=== PATIENT | female | born 1960 | race Caucasian/White ===

== ENCOUNTER 2017-08-30 14:44 | Outpatient (CLI) ==
[2014-11-06 13:28] VITALS: BMI 27.4
--- NOTE | 2017-08-30 15:19 | DI ---
EXAM: Two views of the chest. History: Cough. Comparison: Chest radiograph 09/06/2014 Findings: Heart size is normal. Pacer device. Multifocal right lung consolidation. No pleural flu id and no pneumothorax. No acute osseous abnormalities. Impression: Multifocal right lung pneumonia. Follow-up recommended to assure resolution.
== END 2017-08-30 14:45 | disposition home or self-care (01) ==
LOC: RAD 14:44
PROVIDERS: ATTEND Family Medicine
DX: R05 Cough (principal)

== ENCOUNTER 2017-09-08 11:19 | Outpatient (CLI) ==
[2014-11-06 13:28] VITALS: BMI 27.4
--- NOTE | 2017-09-08 11:58 | DI ---
EXAM: Two-view chest HISTORY: Pneumonia COMPARISON: Two-view chest 08/30/2017 FINDINGS: There is a stable left-sided pacemaker.. The cardiomediastinal silhouette stable. The le ft lung remains clear. There is improving aeration within the right lower lobe with residual infiltr ate. There is no evidence of pleural effusion. IMPRESSION: Significant clearing of a previously noted right-sided infiltrate with residual opacity. Continued f ollow-up is suggested to ensure complete resolution.
== END 2017-09-08 11:20 | disposition home or self-care (01) ==
LOC: RAD 11:19
PROVIDERS: ATTEND Family Medicine
DX: J18.9 Pneumonia, unspecified organism (principal)

== ENCOUNTER 2017-10-12 14:53 | Outpatient (CLI) ==
[2014-11-06 13:28] VITALS: BMI 27.4
--- NOTE | 2017-10-12 16:30 | DI ---
EXAM: Chest two view, frontal and lateral views. HISTORY: Pneumonia follow-up. COMPARISON: 09/08/2017. FINDINGS: Left-sided pacemaker is stable in position. Heart size is normal. There is no vascular c ongestion. Right mid to lower lung consolidation appears mildly worsened since the prior study. Lef t lung is clear. No pleural effusion or pneumothorax identified. No acute osseous abnormality detec ronnie. IMPRESSION: Mild worsening of right lung pneumonia. Continued follow-up is recommended.
== END 2017-10-12 14:54 | disposition home or self-care (01) ==
LOC: RAD 14:53
PROVIDERS: ATTEND Family Medicine
DX: J18.9 Pneumonia, unspecified organism (principal)

== ENCOUNTER 2017-10-14 13:19 | Outpatient (CLI) ==
[2014-11-06 13:28] VITALS: BMI 27.4
--- NOTE | 2017-10-14 14:12 | CT ---
EXAM: CT scan of the chest without contrast HISTORY: Abnormal chest x-ray TECHNIQUE: Helical imaging of the chest was performed without contrast. 5 mm thin axial images and coronal and sagittal reconstructions were provided for interpretation. Comparison 10/12/2017 two-view chest. FINDINGS: The heart is normal size. Small pretracheal lymph nodes are identified measuring up to 9 mm along the short axis. Approximately two lesions are seen. Diffuse infiltrates are seen in the rig ht lower lobe, right middle lobe and right upper lobe of the lung. There is no pleural effusion. Th e left lung appears clear. There is a cyst seen within the left lobe of the liver. No lytic or blast ic lesions are seen within the osseous structures. IMPRESSION: Diffuse pneumonia seen throughout the right lung. Small probable reactive lymph nodes are seen within the mediastinum. Continued evaluation is recomme nded to check for resolution.
== END 2017-10-14 13:20 | disposition home or self-care (01) ==
LOC: RAD 13:19
PROVIDERS: ATTEND Family Medicine
DX: R93.8 Abnormal findings on diagnostic imaging of other specified body structures (principal)

== ENCOUNTER 2018-03-15 12:33 | Emergency (ER) | payer OTHER ==
[2018-03-15 12:33] VITALS: BMI 27.4
[2018-03-15 12:41] VITALS: BP 158/98; TEMP 96.8
[2018-03-15] MEDS ORDERED: ASPIRIN CHEWABLE PO STA (13:00)
[2018-03-15] MEDS ORDERED: NITROSTAT SL PRN (13:01)
[2018-03-15] MEDS ORDERED: MORPHINE 4 MG/ML SYRINGE IVP STA (13:24)
[2018-03-15] MEDS ORDERED: ZOFRAN 4 MG/2 ML IVP STA (13:25)
--- NOTE | 2018-03-15 13:28 | DI ---
EXAM: Chest PA and lateral HISTORY: Chest pain. COMPARRISON: 10/12/2017. FINDINGS: The heart is mildly enlarged. Multi lead left chest pacer device is present. Pulmonary vas cularity is within normal limits. Small right-sided pleural effusion is present. Right basilar patch y airspace opacities are present. IMPRESSION: Small right pleural effusion with associated atelectasis or pneumonia. Mild cardiomegaly.
--- NOTE | 2018-03-15 13:56 | ED.PDOC ---
General ED Provider: Dr. STALIN MCGILL Chief Complaint: Chest Pain Stated Complaint: chest pain Time Seen by Physician: 12:34 (seen with jimena at all times ) Mode of Arrival: Walk-In Information Source: Patient Exam Limitations: No limitations Primary Care Provider: LENO RIGGINS Referred to ED by: Other (PACEMAKER BATTERIES WERE CHANGED 2 WEEKS AGO) Nursing and Triage Documentation Reviewed and Agree: Yes Does patient meet sepsis criteria?: No System Inflammatory Response Syndrome: Not Applicable Sepsis Protocol: For patient's 13 years and over: Temp is 96.8 and below OR 101 and greater Pulse >90 BPM Resp >20/minute Acutely Altered Mental Status Are patient's symptoms suggestive of a new infection, such as: -Pneumonia -Skin, Soft Tissue -Endocarditis -UTI -Bone, Joint Infection -Implantable Device -Acute Abdominal Infection -Wound Infection -Meningitis -Blood Stream Catheter Infection -Unknown Cardiovascular Complaint Exam - Chest Pain Complaint/Exam Onset: Gradual Duration: onset 7 am today Symptoms Are: Still present Timing: Intermittent Length of Chest Pain Episodes: 1 hr Initial Severity: Moderate Current Severity: Moderate Location: Reports: Midsternal Pain Radiates: Reports: None Character: Reports: Aching, Heaviness, Pressure Aggravating: Reports: None Alleviating: Reports: Nitro Associated Signs and Symptoms: Denies: Diaphoresis, Nausea, Vomiting, Fever, Palpitations, Cough, Hemoptysis, Back pain, Abdominal pain, Dizziness, Short of air, Calf pain, Calf swelling Related History: Reports: Similar episode Related Surgical History: Reports: None History of Healthcare-Acquired Pneumonia: Reports: No Review of Systems - Review Of Systems Constitutional: Reports: No symptoms Eyes: Reports: No symptoms Ears, Nose, Mouth, Throat: Reports: No symptoms Respiratory: Reports: No symptoms Cardiac: Reports: Chest pain GI: Reports: No symptoms : Reports: No symptoms Musculoskeletal: Reports: No symptoms Skin: Reports: No symptoms Neurological: Reports: No symptoms Endocrine: Reports: No symptoms Hematologic/Lymphatic: Reports: No symptoms All Other Systems: Reviewed and Negative Past Medical History - Past Medical History Previously Healthy: Yes Endocrine: Reports: Hypothyroid, Dyslipidemia Cardiovascular: Reports: None Respiratory: Reports: None Hematological: Reports: None Gastrointestinal: Reports: GERD Genitourinary: Reports: None Neuro/Psych: Reports: Depression Musculoskeletal: Reports: None Cancer: Reports: None Last Menstrual Period: NONE - Surgical History General Surgical History: Reports: Pacemaker - Family History Family History: Reports: None - Social History Smoking Status: Current every day smoker, Heavy tobacco smoker Hx Substance Use: Yes Alcohol Screening: None Physical Exam - Physical Exam Appearance: Well-appearing, No pain distress, Well-nourished Eyes: SHANNON, EOMI, Conjunctiva clear ENT: Ears normal, Nose normal, Oropharynx normal Respiratory: Airway patent, Breath sounds clear, Breath sounds equal, Respirations nonlabored Cardiovascular: RRR, Pulses normal, No rub, No murmur GI/: Soft, Nontender, No masses, Bowel sounds normal, No Organomegaly Musculoskeletal: Normal strength, ROM intact, No edema, No calf tenderness Skin: Warm, Dry, Normal color Neurological: Sensation intact, Motor intact, Reflexes intact, Cranial nerves intact, Alert, Oriented Psychiatric: Affect appropriate, Mood appropriate Interpretation - Radiology Interpretation Radiology Interpretation By: Radiologist Radiology Results: Positive (small right sided effusion) - [employer] Rate: Normal Rhythm: Sinus Ectopy: None - EKG Interpretation Rate: Normal Rhythm: Sinus Ectopy: None [place]: NL ST Segment: Other (RBBB WITH SECONDRY CHANGES) Rate: Normal Rhythm: Sinus (SAME FINDING MARCO) Re-Evaluation - Re-Evaluation Time of Re-Evaluation: 13:00 Status: Unchanged Vital Signs Stable: Yes Pain Level: 4/10 Appearance: NAD Lungs: Clear Skin: Warm and Dry Neuro: Alert and Oriented X3 CV: RRR - Re-Evaluation Time of Re-Evaluation: 14:03 Status: Improved Vital Signs Stable: Yes Pain Level: 0 Appearance: NAD Skin: Warm and Dry Neuro: Alert and Oriented X3 CV: RRR Physician Notification - Case Discussed Physician Notified: ANDRAE WILLOUGHBY Time of Notification: 14:03 (TRANSFER NOW) Critical Care Note - Critical Care Note Total Time (mins): 0 Course - Course Hematology/Chemistry: 03/15/18 12:55 03/15/18 12:55 Orders, Labs, Meds: Lab Review 03/15/18 03/15/18 12:55 12:55 WBC 13.52 H RBC 4.49 Hgb 12.7 Hct 38.5 MCV 85.7 MCH 28.3 MCHC 33.0 RDW Coeff of Vamsi 16.1 H Plt Count 311 Immature Gran % (Auto) 0.4 Neut % (Auto) 72.7 Lymph % (Auto) 17.7 [place] % (Auto) 6.7 Eos % (Auto) 1.8 Baso % (Auto) 0.7 Immature Gran # (Auto) 0.1 Neut # (Auto) 9.8 H Lymph # (Auto) 2.4 [place] # (Auto) 0.9 Eos # (Auto) 0.2 Baso # (Auto) 0.1 Sodium 143 Potassium 3.3 L Chloride 106 Carbon Dioxide 27 Anion Gap 13.3 BUN 9 Creatinine 0.85 Estimated GFR (MDRD) 68.00 BUN/Creatinine Ratio 10.58 Glucose 86 Calcium 9.3 Total Bilirubin 0.4 AST 14 L ALT 14 Alkaline Phosphatase 86 Total Creatine Kinase 113 Troponin I < 0.0100 Total Protein 6.9 Albumin 3.6 Globulin 3.3 Albumin/Globulin Ratio 1.09 Orders Category Date Time Status EKG-(ED ONLY) Stat CARDIO 03/15/18 12:53 Completed EKG-(ED ONLY) Stat CARDIO 03/15/18 13:21 Ordered ED IV/MEDIPORT/POWERPORT .ONCE EMERGENCY 03/15/18 12:53 Active CBC W/ AUTO DIFF Stat LAB 03/15/18 12:55 Completed COMPREHENSIVE METABOLIC PANEL Stat LAB 03/15/18 12:55 Received CREATINE KINASE Stat LAB 03/15/18 12:55 Received TROPONIN I Stat LAB 03/15/18 12:55 Received 0.9 % Sodium Chloride [Saline Flush] MEDS 03/15/18 12:53 Active 1 syr IVF PRN PRN Aspirin [Aspirin Chewable] MEDS 03/15/18 13:00 Discontinued 324 mg PO ONCE STA Morphine Sulfate [Morphine 4 mg/ml Syringe] MEDS 03/15/18 13:24 Stat 4 mg IVP ONCE STA Nitroglycerin [Nitrostat] MEDS 03/15/18 13:01 Active 0.4 mg SL Q5MIN X 3 DOSES PRN Ondansetron HCl/Pf [Zofran 4 mg/2 ml] MEDS 03/15/18 13:25 Stat 4 mg IVP ONCE STA CHEST, 2 VIEWS PA & LAT Stat RADS 03/15/18 12:53 Ordered Medications Generic Name Dose Route Start Last Admin Trade Name Freq PRN Reason Stop Dose Admin Nitroglycerin 0.4 mg 03/15/18 13:01 03/15/18 13:18 Nitrostat SL 0.4 mg Q5MIN X 3 DOSES PRN Administration Chest Pain Sodium Chloride 1 syr 03/15/18 12:53 03/15/18 13:18 Saline Flush IVF 1 syr PRN PRN Administration To flush IV Discontinued Medications Generic Name Dose Route Start Last Admin Trade Name Kayla PRN Reason Stop Dose Admin Aspirin 324 mg 03/15/18 13:00 03/15/18 13:17 Aspirin Chewable PO 03/15/18 13:01 324 mg ONCE STA Administration Morphine Sulfate 4 mg 03/15/18 13:24 03/15/18 13:39 Morphine 4 Mg/Ml Syringe IVP 03/15/18 13:25 4 mg ONCE STA Administration Ondansetron HCl 4 mg 03/15/18 13:25 03/15/18 13:36 Zofran 4 Mg/2 Ml IVP 03/15/18 13:26 4 mg ONCE STA Administration Vital Signs: Temp Pulse Resp BP Pulse Ox 03/15/18 12:33 96.8 F L 93 H 20 158/98 H 96 ANDREI Risk Score ANDREI Risk Score: Risk Score Odds of by 30D 0 0.1 (0.1-0.2) 1 0.3 (0.2-0.3) 2 0.4 (0.3-0.5) 3 0.7 (0.6-0.9) 4 1.2 (1.0-1.5) 5 2.2 (1.9-2.6) 6 3.0 (2.5-3.6) 7 4.8 (3.8-6.1) Departure - Departure Time of Disposition: 14:04 Disposition: TSF SHORT-TRM HOSP Discharge Problem: Chest pain Instructions: Angina (DC) Condition: Good Pt referred to PMD for follow-up: Yes IPMP verified?: No Additional Instructions: Please call your Family Physician as soon as possible to schedule a follow-up appointment. Allergies/Adverse Reactions: Allergies lithium [Sarah Ann] Adverse Reaction (Verified 03/15/18 12:41) onabotulinumtoxinA [From Botox] Adverse Reaction (Verified 03/15/18 12:41) Home Medications: Ambulatory Orders Atorvastatin Calcium 10 mg PO BEDTIME 09/24/13 Pregabalin [Lyrica] 200 mg PO TID 09/24/13 Levothyroxine Sodium [Synthroid] 75 mcg PO QDAC 04/23/14 Amitriptyline HCl 100 mg PO DAILY 05/16/17 Budesonide/Formoterol Fumarate [Symbicort 160-4.5 Mcg Inhaler] 10.2 gm IH BID Diclofenac Sodium [Voltaren-Xr] 75 mg PO BID 05/16/17 Pantoprazole Sodium [Protonix] 40 mg PO BID 05/16/17 Duloxetine HCl [Cymbalta] 40 mg PO BID 05/18/17 Quetiapine Fumarate [Seroquel] 300 mg PO BEDTIME 05/18/17 Disposition Discussed With: Patient
== END 2018-03-15 14:44 | disposition short-term general hospital (02) ==
LOC: ED 12:33
DX: R07.9 Chest pain, unspecified (principal); E78.5 Hyperlipidemia, unspecified; E03.9 Hypothyroidism, unspecified; Z95.0 Presence of cardiac pacemaker; F17.210 Nicotine dependence, cigarettes, uncomplicated; Z79.899 Other long term (current) drug therapy
CPT/HCPCS: 36415; 80053; 82550; 84484; 85025; 93005; 93010; 96374; 96375; 99285

== ENCOUNTER 2018-04-21 17:12 | Outpatient (CLI) | END 2018-04-21 17:31 | disposition short-term general hospital (02) | LOC: AMBL 17:12 | PROVIDERS: ATTEND Internal Medicine | DX: R41.0 Disorientation, unspecified (principal); R52 Pain, unspecified ==

== ENCOUNTER 2019-04-02 23:03 | Emergency (ER) ==
[2019-04-02 23:22] VITALS: BP 87/57; TEMP 96; BMI 23.8
[2019-04-02] MEDS ORDERED: DECADRON 4 MG/ML SDV IM STA (23:39)
[2019-04-02] MEDS ORDERED: BENADRYL IM STA (23:39)
--- NOTE | 2019-04-02 23:42 | ED.PDOC ---
General ED Provider: Dr. LENO RIGGINS-ER Chief Complaint: Allergic Reaction Stated Complaint: my forehead and arms are red---i must be allergic to the new laundry detergent i used today Time Seen by Physician: 23:40 Mode of Arrival: Walk-In Information Source: Patient Exam Limitations: No limitations Primary Care Provider: LENO RIGGINS Nursing and Triage Documentation Reviewed and Agree: Yes Does patient meet sepsis criteria?: No System Inflammatory Response Syndrome: Not Applicable Sepsis Protocol: For patient's 13 years and over: Temp is 96.8 and below OR 101 and greater Pulse >90 BPM Resp >20/minute Acutely Altered Mental Status Are patient's symptoms suggestive of a new infection, such as: -Pneumonia -Skin, Soft Tissue -Endocarditis -UTI -Bone, Joint Infection -Implantable Device -Acute Abdominal Infection -Wound Infection -Meningitis -Blood Stream Catheter Infection -Unknown Skin Complaint Exam - Skin Rash/Itching Complaint/Exam Onset/Duration: one hour Symptoms Are: Still present Initial Severity: Mild Current Severity: Mild Location: forehead and arms Potential Exposures: Reports: Other Aggravating: Reports: None Alleviating: Reports: None Associated Signs and Symptoms: Denies: Difficulty breathing, Fever, Chills Differential Diagnoses: Contact Dermatitis Review of Systems - Review Of Systems Constitutional: Reports: No symptoms Eyes: Reports: No symptoms Ears, Nose, Mouth, Throat: Reports: No symptoms Respiratory: Reports: No symptoms Cardiac: Reports: No symptoms GI: Reports: No symptoms : Reports: No symptoms Musculoskeletal: Reports: No symptoms Skin: Reports: Rash Neurological: Reports: No symptoms Endocrine: Reports: No symptoms Hematologic/Lymphatic: Reports: No symptoms All Other Systems: Reviewed and Negative Past Medical History - Past Medical History Previously Healthy: Yes Endocrine: Reports: Hypothyroid, Dyslipidemia Cardiovascular: Reports: None Respiratory: Reports: None Hematological: Reports: None Gastrointestinal: Reports: GERD Genitourinary: Reports: None Neuro/Psych: Reports: Depression Musculoskeletal: Reports: None Cancer: Reports: None Last Menstrual Period: UNKNOWN - Surgical History General Surgical History: Reports: Pacemaker - Family History Family History: Reports: None - Social History Smoking Status: Current every day smoker, Heavy tobacco smoker Hx Substance Use: Yes Alcohol Screening: None - Immunizations Tetanus Shot up to Date: (UNKNOWN) Physical Exam - Physical Exam Appearance: Well-appearing, No pain distress, Well-nourished Eyes: SHANNON, EOMI, Conjunctiva clear ENT: Ears normal, Nose normal, Oropharynx normal Neck: Supple Respiratory: Airway patent, Breath sounds clear, Breath sounds equal, Respirations nonlabored Cardiovascular: RRR, Pulses normal, No rub, No murmur GI/: Soft, Nontender, No masses, Bowel sounds normal, No Organomegaly Musculoskeletal: Normal strength, ROM intact, No edema, No calf tenderness Skin: Warm, Dry, Normal color Neurological: Sensation intact, Motor intact, Reflexes intact, Cranial nerves intact, Alert, Oriented Psychiatric: Affect appropriate, Mood appropriate Critical Care Note - Critical Care Note Total Time (mins): 0 Course - Course Orders, Labs, Meds: Orders Category Date Time Status Dexamethasone 4 mg/ml Inj [Decadron 4 mg/ml Sdv] MEDS 04/02/19 23:39 Discontinued 2 mg IM ONCE STA Diphenhydramine Inj [Benadryl] MEDS 04/02/19 23:39 Discontinued 50 mg IM ONCE STA Medications Discontinued Medications Generic Name Dose Route Start Last Admin Trade Name Freq PRN Reason Stop Dose Admin Dexamethasone Sodium Phosphate 2 mg 04/02/19 23:39 04/02/19 23:54 Decadron 4 Mg/Ml Sdv IM 04/02/19 23:40 2 mg ONCE STA Administration Diphenhydramine HCl 50 mg 04/02/19 23:39 04/02/19 23:52 Benadryl IM 04/02/19 23:40 50 mg ONCE STA Administration Vital Signs: Temp Pulse Resp BP Pulse Ox 04/02/19 23:05 96 F L 90 20 87/57 L 96 Departure - Departure Time of Disposition: 23:42 Disposition: HOME SELF-CARE Discharge Problem: Allergic state Instructions: General Allergic Reaction (ED) Condition: Good Pt referred to PMD for follow-up: Yes IPMP verified?: No Additional Instructions: f/u prn Allergies/Adverse Reactions: Allergies lithium [[place]] Adverse Reaction (Verified 04/02/19 23:22) onabotulinumtoxinA [From Botox] Adverse Reaction (Verified 04/02/19 23:22) Home Medications: Ambulatory Orders Atorvastatin Calcium 10 mg PO BEDTIME 09/24/13 Pregabalin [Lyrica] 200 mg PO TID 09/24/13 Levothyroxine Sodium [Synthroid] 75 mcg PO QDAC 04/23/14 Amitriptyline HCl 150 mg PO DAILY 05/16/17 Budesonide/Formoterol Fumarate [Symbicort 160-4.5 Mcg Inhaler] 10.2 gm IH BID Pantoprazole Sodium [Protonix] 40 mg PO BID 05/16/17 Duloxetine HCl [Cymbalta] 40 mg PO BID 05/18/17 Quetiapine Fumarate [Seroquel] 400 mg PO BEDTIME 05/18/17 Methylphenidate HCl [Ritalin] 20 mg PO BID 04/02/19 Topiramate [Topamax] 25 mg PO BEDTIME 04/02/19 Disposition Discussed With: Patient
== END 2019-04-02 23:59 | disposition home or self-care (01) ==
LOC: ED 23:03
DX: L23.5 Allergic contact dermatitis due to other chemical products (principal); F17.210 Nicotine dependence, cigarettes, uncomplicated
CPT/HCPCS: 96372; 99282